=== PATIENT | female | born 1975 | race Caucasian/White ===

== ENCOUNTER 2016-11-05 15:04 | Emergency (ER) | payer OTHER ==
[~2016-11-05] VITALS: Ht 167.6 cm; Wt 106.4 kg
[2016-11-05] MEDS ORDERED: KETOROLAC 30 MG/1 ML IM ONE (16:00)
[2016-11-05] MEDS ORDERED: KETOROLAC 30 MG/1 ML ONE (16:40)
[2016-11-05] MEDS ORDERED: LISI-170 PO (17:04)
[2016-11-05 17:07] VITALS: BP 180/94
== END 2016-11-05 17:17 | disposition home or self-care (01) ==
LOC: ED 17:00
DX: M62.838 Other muscle spasm (principal); M25.511 Pain in right shoulder; M54.2 Cervicalgia; I10 Essential (primary) hypertension; Z88.1 Allergy status to other antibiotic agents
CPT/HCPCS: 29105; 73030; 96372; 99284; J1885